=== PATIENT | female | born 1965 | race American Indian/Alaskan Native ===

== ENCOUNTER 2019-10-17 19:01 | Emergency (ER) | payer SELFPAY | END 2019-10-17 19:40 | disposition left against medical advice (07) | LOC: ED 19:01 | DX: I10 Essential (primary) hypertension (principal); Z53.21 Procedure and treatment not carried out due to patient leaving prior to being seen by health care provider ==

== ENCOUNTER 2020-12-10 13:40 | Emergency (ER) | payer MEDICARE ==
[2020-12-10 17:02] VITALS: BP 184/116
--- NOTE | 2020-12-10 17:33 | Emergency Department Report ---
ED General Adult HPI - General Chief complaint: Extremity Injury, Upper Stated complaint: LT ARM/SHOULDER/POSSIBLE KIDNEY Time Seen by Provider: 12/10/20 17:03 Source: patient Mode of arrival: Ambulatory Limitations: No Limitations - History of Present Illness Initial comments: Patient is a 54-year-old female presents emergency room complaints of left elbow Pain that began a week ago. States that her pain is worse with movement. She states that a couple days ago she began having left shoulder pain. She denies any fall or injury. She states that she does not work. She denies any arm swelling, skin changes, fever, nausea, vomiting, diarrhea, numbness, weakness, SOB, CP, diaphoresis. She is still able to move the arm and left arm above the head. She states that also for the last 2 weeks she has had left flank pain, urinary frequency, urinary urgency, dark urine, odor to the urine. She denies any abdominal pain or abnormal vaginal discharge. She states that she took some leftover antibiotics that her daughter had which she believes starts with a "C" for UTI. Past medical history of hypertension and diabetes. She reports that she takes lisinopril and states that she took it today. No allergies to medications. She states that she is not sexually active and denies any concerns for STDs. - Related Data Previous Rx's Medication Instructions Recorded Last Taken Type Acyclovir 800 mg PO 5XD #50 tablet 07/01/18 Unknown Rx Ibuprofen [Motrin 600 MG tab] 600 mg PO Q8H PRN #30 tablet 07/01/18 Unknown Rx traMADoL [Ultram 50 MG tab] 50 mg PO Q6HR PRN #12 tablet 07/01/18 Unknown Rx Diclofenac Sodium [Voltaren 1 applicatio TP BID #20 gel..gram. 12/10/20 Unknown Rx Arthritis Pain] Meloxicam [Mobic] 15 mg PO DAILY #14 tablet 12/10/20 Unknown Rx cephALEXin [Keflex] 500 mg PO BID 7 Days #14 cap 12/10/20 Unknown Rx Allergies Allergy/AdvReac Type Severity Reaction Status Date / Time No Known Allergies Allergy Verified 12/10/20 17:03 ED Review of Systems ROS: Stated complaint: LT ARM/SHOULDER/POSSIBLE KIDNEY Other details as noted in HPI Comment: All other systems reviewed and negative ED Past Medical Hx - Past Medical History Hx Hypertension: Yes Hx Diabetes: Yes Hx Seizures: Yes - Surgical History Hx Cholecystectomy: Yes (2014) Additional Surgical History: hysterectomy, lithotripsy - Social History Smoking Status: Never Smoker Substance Use Type: None - Medications Home Medications: Home Medications Medication Instructions Recorded Confirmed Last Taken Type Acyclovir 800 mg PO 5XD #50 tablet 07/01/18 Unknown Rx Ibuprofen [Motrin 600 MG tab] 600 mg PO Q8H PRN #30 tablet 07/01/18 Unknown Rx traMADoL [Ultram 50 MG tab] 50 mg PO Q6HR PRN #12 tablet 07/01/18 Unknown Rx Diclofenac Sodium [Voltaren 1 applicatio TP BID #20 gel..gram. 12/10/20 Unknown Rx Arthritis Pain] Meloxicam [Mobic] 15 mg PO DAILY #14 tablet 12/10/20 Unknown Rx cephALEXin [Keflex] 500 mg PO BID 7 Days #14 cap 12/10/20 Unknown Rx ED Physical Exam - General Limitations: No Limitations General appearance: alert, in no apparent distress - Head Head exam: Present: atraumatic, normocephalic - Eye Eye exam: Present: normal appearance - ENT ENT exam: Present: mucous membranes moist - Neck Neck exam: Present: normal inspection, full ROM. Absent: tenderness, meningismus - Respiratory Respiratory exam: Present: normal lung sounds bilaterally. Absent: respiratory distress, wheezes, rales, rhonchi, stridor, chest wall tenderness, accessory muscle use, decreased breath sounds, prolonged expiratory - Cardiovascular Cardiovascular Exam: Present: regular rate, normal rhythm, normal heart sounds. Absent: systolic murmur, diastolic murmur, rubs, gallop - GI/Abdominal GI/Abdominal exam: Present: soft, normal bowel sounds. Absent: distended, tenderness, guarding, rebound, rigid - Extremities Exam Extremities exam: Present: other (mild ttp of the left posterior elbow and left trapezius, no edema, no ecchymosis, no skin changes, no increased warmth or erythema, FROM of the LUE, neurovascularly intact with strong distal pulses) - Back Exam Back exam: Absent: CVA tenderness (R), CVA tenderness (L) - Neurological Exam Neurological exam: Present: alert, oriented X3, CN II-XII intact, normal gait. Absent: motor sensory deficit - Psychiatric Psychiatric exam: Present: normal affect, normal mood - Skin Skin exam: Present: warm, dry, intact ED Course Vital Signs 12/10/20 16:59 Temperature 98.9 F Pulse Rate 100 H Respiratory 20 Rate Blood Pressure 184/116 O2 Sat by Pulse 100 Oximetry ED Medical Decision Making - Lab Data Lab Results 12/10/20 Range/Units 17:22 Urine Color [place] (Yellow) Urine Turbidity Clear (Clear) Urine pH 5.0 (5.0-7.0) Ur Specific [place] 1.027 (1.003-1.030) Urine Protein 30 mg/dl (Negative) mg/dL Urine Glucose (UA) >=500 (Negative) mg/dL Urine Ketones 20 (Negative) mg/dL Urine Blood Neg (Negative) Urine Nitrite Pos (Negative) Urine Bilirubin Neg (Negative) Urine Urobilinogen < 2.0 (<2.0) mg/dL Ur Leukocyte Esterase Neg (Negative) Urine WBC (Auto) 6.0 (0.0-6.0) /HPF Urine RBC (Auto) 4.0 (0.0-6.0) /HPF U Epithel Cells (Auto) 1.0 (0-13.0) /HPF - Medical Decision Making Patient is a 54-year-old female presents emergency room complaints of left elbow Pain that began a week ago. States that her pain is worse with movement. She states that a couple days ago she began having left shoulder pain. She denies any fall or injury. She states that she does not work. She denies any arm swelling, skin changes, fever, nausea, vomiting, diarrhea, numbness, weakness, SOB, CP, diaphoresis. She is still able to move the arm and left arm above the head. She states that also for the last 2 weeks she has had left flank pain, urinary frequency, urinary urgency, dark urine, odor to the urine. She denies any abdominal pain or abnormal vaginal discharge. She states that she took some leftover antibiotics that her daughter had which she believes starts with a "C" for UTI. Past medical history of hypertension and diabetes. She reports that she takes lisinopril and states that she took it today. No allergies to medications. She states that she is not sexually active and denies any concerns for STDs. Initial vitals with elevated blood pressure, patient has past medical history of hypertension, she has had elevated blood pressure during prior visits, she is asymptomatic, the up-to-date medical literature does not recommend emergently lowering asymptomatic elevated blood pressure, discussed primary care follow-up and lifestyle modifications. On exam:mild ttp of the left posterior elbow and left trapezius, no edema, no ecchymosis, no skin changes, no increased warmth or erythema, FROM of the LUE, neurovascularly intact with strong distal pulses. Examination appears most consistent with muscle strain and tendinitis. Patient has had no acute trauma, she has no signs of fracture or dislocation. Patient has no clinical signs of DVT, acute arterial occlusion, septic joint, gout. UA still shows some nitrites, patient could have incomplete treated UTI given that she took some of her daughter's antibiotics, will cover patient with Keflex and advised to follow-up with primary care doctor for retesting of urine. Patient given prescription for Mobic, Voltaren gel, Keflex. Advised patient Please take medication as prescribed. Increase your water intake. Follow-up with a primary care doctor regarding the elevation in your blood pressure, please have your urine retested. Eat a low-sodium diet, increase your water intake, incorporate 30 to 60 minutes daily exercise. Please follow-up with a online banking specialist regarding your elbow pain and shoulder pain. Return to emergency room for any new or worsening symptoms. Critical care attestation.: If time is entered above; I have spent that time in minutes in the direct care of this critically ill patient, excluding procedure time. ED Disposition Clinical Impression: Left elbow pain, Elevated blood pressure reading Left shoulder pain Qualifiers: Chronicity: acute Qualified Code(s): M25.512 - Pain in left shoulder UTI (urinary tract infection) Qualifiers: Urinary tract infection type: acute cystitis Hematuria presence: without hematuria Qualified Code(s): N30.00 - Acute cystitis without hematuria Disposition: TO HOME OR SELFCARE Is pt being admited?: No Does the pt Need Aspirin: No Condition: Stable Instructions: Tendinitis, Muscle Strain, [id number], Urinary Tract Infection, Adult Additional Instructions: Please take medication as prescribed. Increase your water intake. Follow-up with a primary care doctor regarding the elevation in your blood pressure, please have your urine retested. Eat a low-sodium diet, increase your water intake, incorporate 30 to 60 minutes daily exercise. Please follow-up with a online banking specialist regarding your elbow pain and shoulder pain. Return to emergency room for any new or worsening symptoms. Prescriptions: cephALEXin [Keflex] 500 mg PO BID 7 Days #14 cap Meloxicam [Mobic] 15 mg PO DAILY #14 tablet Diclofenac Sodium [Voltaren Arthritis Pain] 1 applicatio TP BID #20 gel..gram. Referrals: SINAN SHARPE MD [Staff Physician] - 3-5 Days your, primary care doctor [Other] - 3-5 Days Time of Disposition: 18:05 Print Language: KOREAN
[2020-12-10 17:44] LABS: Bilirubin,Urine NEG (Negative); Blood,Urine NEG (Negative); Color,Urine Amber (Yellow); Urobilinogen,Urine < 2.0 mg/dL (<2.0)
== END 2020-12-10 18:52 | disposition home or self-care (01) ==
LOC: ED 13:40
DX: N39.0 Urinary tract infection, site not specified (principal); M25.522 Pain in left elbow; M25.512 Pain in left shoulder; I10 Essential (primary) hypertension; E11.9 Type 2 diabetes mellitus without complications; R56.9 Unspecified convulsions; Z90.49 Acquired absence of other specified parts of digestive tract; Z98.890 Other specified postprocedural states; Z90.710 Acquired absence of both cervix and uterus; Z79.1 Long term (current) use of non-steroidal anti-inflammatories (NSAID); Z79.899 Other long term (current) drug therapy
CPT/HCPCS: 81001; 87086